=== PATIENT | male | born 1955 | race Caucasian/White ===

== ENCOUNTER 2022-11-08 08:09 | Day surgery (SDC) | payer MEDICARE, OTHER ==
[2022-11-04 10:51] LABS: BASOPHILS # (AUTO) 0.1 X10'3 (0-0.2); EOSINOPHILS # (AUTO) 0.2 X10'3 (0-0.9); EOSINOPHILS % (AUTO) 2.6 % (0-6); LYMPHOCYTES # (AUTO) 1.8 X10'3 (1.1-4.8); LYMPHOCYTES % (AUTO) 30.2 % (21-51); MEAN CORPUSCULAR HEMOGLOBIN 28.4 PG (27.0-31.0); MEAN CORPUSCULAR HGB CONC 33.3 g/dL (33.0-36.5); MEAN CORPUSCULAR VOLUME 85.3 FL (78-98); MEAN PLATELET VOLUME 9.5 FL (7.4-10.4); MONOCYTES # (AUTO) 0.4 X10'3 (0-0.9); MONOCYTES % (AUTO) 7.3 % (2-12); NEUTROPHILS # (AUTO) 3.5 X10'3 (1.8-7.7); NEUTROPHILS % (AUTO) 58.9 % (42-75); PRE OP HEMOGLOBIN 14.3 g/dL (14.0-17.9); PRE OP PLATELET COUNT 301 X10'3 (140-440); RED BLOOD COUNT 5.04 X10'6 (4.70-6.10); RED CELL DISTRIBUTION WIDTH 13.9 % (11.5-14.5)
[2022-11-04 11:11] LABS: ALBUMIN 3.7 G/DL (3.4-5.0); ALBUMIN/GLOBULIN RATIO 0.9 (1.1-1.5); ALKALINE PHOSPHATASE 88 IU/L (46-116); BLOOD UREA NITROGEN 11 MG/DL (7-18); BUN/CREATININE RATIO 10.3 (10.0-20.0); CHLORIDE 104 MMOL/L (99-107); CREATININE 1.07 MG/DL (0.60-1.10); PRE OP ALT 31 U/L (30-65); PRE OP ANION GAP 6 (8-16); PRE OP AST 31 U/L (10-37); PRE OP BILIRUB, TOTAL 0.5 MG/DL (0.0-1.0); PRE OP GLUCOSE 105 MG/DL (70-104); PRE OP POTASSIUM 3.9 MMOL/L (3.4-5.1); PRE OP SODIUM 139 MMOL/L (135-145); TOTAL CARBON DIOXIDE 28.8 MMOL/L (24-32); TOTAL PROTEIN 7.7 G/DL (6.4-8.2); eGFR 69 ML/MIN
[~2022-11-08] VITALS: Ht 180.3 cm; Wt 98.5 kg
[~2022-11-08 08:09] MED LIST: NO HOME MEDS; cefazolin 2gm/D5W 100mL 100 ML IV ONE; famotidine 20mg tablet PO ONE; ringers solution, lacted 1,000 ML IV SCH
[2022-11-08 08:20] VITALS: BP 160/94
[2022-11-08] MEDS ORDERED: fentaNYL/PF 50MCG/1 ML 2ML syringe IV PRN ×2 (08:25)
[2022-11-08] MEDS ORDERED: ondansetron/PF 4mg/2ml inj IV PRN (08:25)
[2022-11-08] MEDS ORDERED: ringers solution, lacted 1,000 ML IV SCH (08:25)
[2022-11-08] MEDS ORDERED: morphine 4 MG/ML inj SYRINge IV PRN (08:25)
[2022-11-08] MEDS ORDERED: morphine 2 MG/ML inj. syringe IV PRN (08:25)
[2022-11-08] MEDS ORDERED: labetalol 20mg/4ml (5mg/ml) syringe IV PRN (08:25)
[2022-11-08] MEDS ORDERED: hydrALAZINE 20mg/ml inj. IV PRN (08:25)
[2022-11-08] MEDS ORDERED: LIDOcaine 1% W/epiNEPHrine 1:100,000 20ml vial ONE (10:02)
[2022-11-08] MEDS ORDERED: BUPIVAcaine/PF 5 mg/ml 10ml ONE (10:03)
[2022-11-08] MEDS ORDERED: LIDOcaine 1% 30ml preserv. free vial ONE (10:06)
[2022-11-08] MEDS ORDERED: morphine 4 MG/ML inj SYRINge ONE (10:06)
[2022-11-08] MEDS ORDERED: midazolam 1 mg/ML 2ml injection ONE (10:18)
[2022-11-08] MEDS ORDERED: fentaNYL/PF 50MCG/1 ML 2ML syringe ONE (10:18)
[2022-11-08] MEDS ORDERED: propofol inj 20 ML IV ONE ×2 (10:18→10:19)
[2022-11-08] MEDS ORDERED: LIDOcaine 2% (20mg/ml) 5ml vial ONE (10:19)
[2022-11-08] MEDS ORDERED: acetaminophen 1,000mg/100ml IV 100 ML IV ONE (10:37)
[2022-11-08 11:19] VITALS: BP 130/83
--- NOTE | 2022-11-08 11:19 | NUR ---
Received from OR via [facility] IN STABLE CONDITION , accompanied by Anesthesiologist and STARCH FACTORY LABORER report given by STARCH FACTORY LABORER AND Anesthesiolgist. Addendum: 11/08/22 at 1144 by Ju Caban RN Amended: Links added.
[2022-11-08 11:30] VITALS: BP 125/65
[2022-11-08 11:40] VITALS: BP 124/63
[2022-11-08 11:50] VITALS: BP 119/64
[2022-11-08 12:00] VITALS: BP 136/77
--- NOTE | 2022-11-08 12:19 | NUR ---
PATIENT DISCHARGED FROM PACU IN STABLE CONDITION AFTER WRITTEN AND VERBAL DISCHARGE INSTRUCTIONS GIVEN. PATIENT GAVE VERBAL UNDERSTANDING OF INSTRUCTIONS GIVEN. PATIENT LEFT FACILITY VIA WHEELCHAIR WITH RN. Addendum: 11/08/22 at 1234 by Ju Caban RN Amended: Links added.
== END 2022-11-08 12:19 | disposition home or self-care (01) ==
LOC: PAS 08:09
PROVIDERS: ATTEND Orthopaedic Surgery
DX: S83.232A Complex tear of medial meniscus, current injury, left knee, initial encounter (principal); S83.282A Other tear of lateral meniscus, current injury, left knee, initial encounter; X58.XXXA Exposure to other specified factors, initial encounter; Y93.89 Activity, other specified; Y92.89 Other specified places as the place of occurrence of the external cause; Y99.8 Other external cause status; M94.262 Chondromalacia, left knee; Z79.899 Other long term (current) drug therapy; Z98.890 Other specified postprocedural states
CPT/HCPCS: 29880; 36415; 80053; 82948; 85025; J0131; J0690; J2250; J2270; J2704; J3010; J3490; J7120; Z7506; Z7512; A4215; A4618; A6253; A6446; A6449; A7000